=== PATIENT | female | born 1955 | race Caucasian/White ===

== ENCOUNTER 2020-04-10 07:20 | Outpatient (CLI) | payer OTHER, SELFPAY ==
[2020-04-10 07:36] LABS: Basophils Absolute Auto 0.04 K/mm3 (0.00-0.10); Basophils Percent Auto 0.4 % (0.0-1.0); Eosinophils Percent Auto 2.1 % (1.0-6.0); Hematocrit 44.8 % (35.0-49.0); Hemoglobin 14.4 g/dL (12.0-15.0); Immature Granulocyte Absolute 0.03 K/mm3 (0.00-0.00); Immature Granulocyte Percent A 0.3 % (0.0-0.0); Lymphocytes Absolute Auto 1.56 K/mm3 (1.10-4.50); Lymphocytes Percent Auto 16.7 % (18.0-42.0); Mean Corpuscular HGB Conc 32.1 g/dL (32.0-36.0); Mean Corpuscular Hemoglobin 28.9 pg (27.0-31.0); Mean Corpuscular Volume 89.8 fL (78.0-102.0); Mean Platelet Volume 10.4 fl (9.2-11.8); Monocytes Absolute Auto 0.67 K/mm3 (0.10-0.90); Monocytes Percent Auto 7.2 % (2.0-11.0); Neutrophils Absolute Auto 6.8 K/mm3 (1.7-7.2); Neutrophils Percent Auto 73.3 % (50.0-70.0); Platelet Count Result 282 K/mm3 (150-420); Red Blood Count 4.99 M/mm3 (4.20-5.40); White Blood Count 9.3 K/mm3 (4.8-10.8)
[2020-04-10 07:37] LABS: Appearance Urine Clear (Clear); Bilirubin Urine Negative (Negative); Color Urine Yellow (Yellow); Glucose Urine UA Negative (Negative); Ketones Urine Negative (Negative); Leukocyte Esterase Ur Negative LEU/UL (Negative); Nitrate Urine Negative (Negative); Protein Urine Negative (Negative); Urobilinogen Urine 0.2 mg/dL (0.2-1.0); pH Urine 7.5 (5.0-8.0)
[2020-04-10 07:49] LABS: Add Urine Microscopic? YES; Bacteria Urine None seen /hpf; Blood Urine Trace-Intact (Negative); RBC Urine None seen /hpf (0-2); Squamous Epithelial Cell Urine Rare /hpf (Few); WBC Urine None seen /hpf (0-3)
[2020-04-10 09:04] LABS: Alanine Aminotransferase 19 U/L (14-59); Albumin Level 3.8 g/dL (3.4-5.0); Alkaline Phosphatase 69 U/L (46-116); Anion Gap 8 mmol/L (8-16); Aspartate Amino Transferase 15 U/L (15-37); Bilirubin,Total 0.2 mg/dL (0.00-1.00); Blood Urea Nitrogen 35 mg/dL (7-18); Calcium 11.4 mg/dL (8.5-10.1); Carbon Dioxide 29 mmol/L (21-32); Chloride 103 mmol/L (98-108); Cholesterol 219 mg/dL (0-200); Estimated Glomerular Filt Rate 28; Glucose 95 mg/dL (70-99); HDL Direct 53 mg/dL (40-60); LDL Cholesterol Calculated 140 mg/dL (<130); Osmolality Calculated 298 mOsm/kg (285-295); Potassium 4.8 mmol/L (3.5-5.1); Sodium 140 mmol/L (136-145); Total Protein 6.9 g/dL (6.4-8.2); Triglycerides 132 mg/dL (0-150)
[2020-04-15 07:44] LABS: Vitamin D 25 Hydroxy 21 ng/mL (30-100)
== END 2020-04-10 07:21 | disposition home or self-care (01) ==
LOC: CHSLAB 07:24
PROVIDERS: PCP Internal Medicine; Visit Provider Internal Medicine
DX: E55.9 Vitamin D deficiency, unspecified (principal); I10 Essential (primary) hypertension; E78.5 Hyperlipidemia, unspecified
CPT/HCPCS: 36415; 80053; 80061; 81001; 82306; 85025

== ENCOUNTER 2020-04-17 14:54 | Outpatient (CLI) | payer OTHER, SELFPAY ==
[2020-04-18 01:03] LABS: SARS-CoV-2 RNA PCR Negative
== END 2020-04-17 14:55 | disposition home or self-care (01) ==
LOC: CHSLAB 14:57
PROVIDERS: PCP Internal Medicine; Visit Provider Internal Medicine
DX: R68.83 Chills (without fever) (principal); R11.0 Nausea; R19.7 Diarrhea, unspecified; R05 Cough; Z20.828 Contact with and (suspected) exposure to other viral communicable diseases
CPT/HCPCS: 87635; C9803; U0003

== ENCOUNTER 2020-04-20 11:52 | Outpatient (CLI) | payer OTHER, SELFPAY ==
--- NOTE | ~2020-04-20 | XR_ITS ---
EXAMINATION: XR chest 2V DATE: 04/20/2020 12:22 INDICATION: Congestion and chills. TECHNIQUE: Frontal and lateral views of the chest were obtained. COMPARISON: None. FINDINGS: The chest demonstrates clear lungs without pneumonia, pleural effusion, or pneumothorax. Th e heart size is normal. IMPRESSION: 1. No acute cardiopulmonary disease. Reviewed, dictated and finalized at location A. SUPERVISOR
[2020-04-20 12:33] LABS: Basophils Absolute Auto 0.04 K/mm3 (0.00-0.10); Basophils Percent Auto 0.5 % (0.0-1.0); Eosinophils Absolute Auto 0.26 K/mm3 (0.02-0.50); Eosinophils Percent Auto 3.1 % (1.0-6.0); Hematocrit 41.2 % (35.0-49.0); Hemoglobin 13.2 g/dL (12.0-15.0); Immature Granulocyte Absolute 0.02 K/mm3 (0.00-0.00); Immature Granulocyte Percent A 0.2 % (0.0-0.0); Lymphocytes Absolute Auto 1.44 K/mm3 (1.10-4.50); Lymphocytes Percent Auto 17.4 % (18.0-42.0); Mean Corpuscular Hemoglobin 28.8 pg (27.0-31.0); Mean Corpuscular Volume 89.8 fL (78.0-102.0); Mean Platelet Volume 10.9 fl (9.2-11.8); Monocytes Absolute Auto 0.52 K/mm3 (0.10-0.90); Monocytes Percent Auto 6.3 % (2.0-11.0); Neutrophils Percent Auto 72.5 % (50.0-70.0); Platelet Count Result 327 K/mm3 (150-420); Red Blood Count 4.59 M/mm3 (4.20-5.40); Red Cell Distribution Width 14.9 % (11.6-14.4); White Blood Count 8.3 K/mm3 (4.8-10.8)
[2020-04-20 13:08] LABS: Influenza Control Valid (Valid)
[2020-04-20 13:38] LABS: Anion Gap 8 mmol/L (8-16); Blood Urea Nitrogen 25 mg/dL (7-18); Calcium 10.2 mg/dL (8.5-10.1); Carbon Dioxide 28 mmol/L (21-32); Chloride 103 mmol/L (98-108); Estimated Glomerular Filt Rate 34; Glucose 103 mg/dL (70-99); Osmolality Calculated 292 mOsm/kg (285-295); Potassium 4.4 mmol/L (3.5-5.1); Sodium 139 mmol/L (136-145)
== END 2020-04-20 11:53 | disposition home or self-care (01) ==
PROVIDERS: PCP Internal Medicine; Visit Provider Internal Medicine
DX: R09.89 Other specified symptoms and signs involving the circulatory and respiratory systems (principal); R68.83 Chills (without fever)
CPT/HCPCS: 71046; 80048; 85025; 87804

== ENCOUNTER 2020-06-04 11:12 | Outpatient (CLI) | payer OTHER, SELFPAY ==
[2020-06-04 12:28] LABS: SARS-CoV-2 Ag Negative (Negative)
== END 2020-06-04 11:13 | disposition home or self-care (01) ==
LOC: CHSLAB 11:14
PROVIDERS: PCP Internal Medicine; Visit Provider Internal Medicine
DX: Z20.828 Contact with and (suspected) exposure to other viral communicable diseases (principal)
CPT/HCPCS: 87426; C9803

== ENCOUNTER 2020-06-06 09:14 | Emergency (ER) | payer OTHER, SELFPAY ==
--- NOTE | ~2020-06-06 | XR_ITS ---
EXAMINATION: XR chest 2V DATE: 06/06/2020 10:01 INDICATION: Shortness of breath and cough TECHNIQUE: PA and lateral views of the chest were obtained. COMPARISON: Chest radiograph dated 04/20/20 FINDINGS: The lungs remain clear with no focal airspace opacities, pulmonary edema, pleural effusion or pneumot horax. The cardiomediastinal silhouette is normal. Moderate thoracic spondylosis. IMPRESSION: 1. No acute cardiopulmonary disease. Reviewed, dictated and finalized at location A. DE SALES ADVISOR
[2020-06-06 09:28] VITALS: BP 177/84; PULSE 94; RESP 20; TEMP 37.3; O2SAT 95
--- NOTE | 2020-06-06 09:32 | ED.URI ---
HPI - URI/Sore Throat General Chief Complaint: Upper Respiratory Infection Stated Complaint: chest congestion, cough Time Seen by Provider: 06/06/20 09:36 Source: patient Mode of arrival: ambulatory Limitations: no limitations History of Present Illness HPI Narrative: C2 5-year-old woman with history of hypertension and dyslipidemia comes in today complaining of a 4 day history of cough and mild shortness of breath. Patient states that she had fever on the 1st day but has had no fever since then. She states her cough is nonproductive and her abdominal muscles are sore from coughing. She has had nasal congestion but no sore throat, chest pain, vomiting, diarrhea. She denies any sick exposures and has no history of lung or smoking. MD elicited complaint: fever, cough and rhinorrhea Onset (ago): day(s) (3) Consistency: constant Severity: moderate Description of mucous: clear Exacerbating factors: nothing Relieving factors: nothing Associated symptoms: fever, myalgias, rhinorrhea and cough Treatments prior to arrival: cold medicine Related Data Home Medications Medication Instructions Recorded Confirmed amlodipine 10 mg PO DAILY 06/06/20 06/06/20 atorvastatin 10 mg PO DAILY 06/06/20 06/06/20 carvedilol 25 mg PO BID 06/06/20 06/06/20 losartan 100 mg PO DAILY 06/06/20 06/06/20 Allergies Allergy/AdvReac Type Severity Reaction Status Date / Time No Known Allergies Allergy Verified 06/06/20 09:37 Review of Systems Constitutional: Constitutional: Denies chills, Reports fatigue, Reports fever(s) and Denies weakness Eyes: Eyes: Denies change in vision and Denies photophobia ENT: Denies dysphagia, Denies nasal congestion and Denies sore throat Cardiovascular: Cardiovascular: Denies chest pain and Denies radiating jaw, neck or arm pain Respiratory: Respiratory: Reports chest congestion, Reports cough, Reports dyspnea and Reports wheezing Gastrointestinal: Gastrointestinal: Reports abdominal pain, Denies diarrhea, Denies nausea and Denies vomiting Genitourinary: Genitourinary: Denies hematuria, Denies nocturia and Denies dysuria Musculoskeletal: Musculoskeletal: Denies arthralgias and Denies joint swelling Integumentary/Breasts: Skin/Breast: Denies pruritus, Denies erythema and Denies rash Neurologic: Denies vertigo, Denies dizziness and Denies syncope Hematologic/Lymphatic: Hematologic/Lymphatic: Denies easy bleeding and Denies easy bruising Allergic/Immunologic: Allergic/Immunologic: Denies lip swelling, Denies throat swelling and Denies tongue swelling PMFSH Past Medical History Medical History Dyslipidemia Hypertension Social History Social History Smoking status: Never smoker Substance use: never Living arrangements: with family Exam Const: General: healthy appearing, no acute distress and alert Orientation/consciousness: patient oriented x3 Limitations: no limitations HENMT: Head: normal to inspection Ears: external ears normal, TM's normal bilaterally and EAC's normal General nose exam: Normal nares present Face and sinus: normal facial exam Mouth: Yes moist mucous membranes Throat: posterior oropharynx normal Eyes: Conjunctivae: conjunctivae normal Pupils: Equal, round and reactive pupils present EOM: EOMs intact bilaterally Resp: Effort & Inspection: normal respiratory effort and not labored Auscultation: no rales, no rhonchi and wheezes inspiratory wheezes and throughout Cardio: Rate: regular rate Rhythm: regular rhythm Skin: General skin exam: normal color, no jaundice and no pallor Rashes: no rashes Neuro: General: patient oriented x3, moves all extremities, no focal motor deficits and CN's II-XI intact bilaterally Speech: normal speech Gait exam (Neuro): Normal gait present Extrem: General: normal to inspection and no clubbing, cyanosis or edema Psych: Appear
[2020-06-06] MEDS: ALBUTEROL SULFATE (*SP) INHALER 4 PUFF INHALATION (10:10)
[2020-06-06 10:18] VITALS: BP 140/89; PULSE 74; RESP 18; O2SAT 98
== END 2020-06-06 10:27 | disposition home or self-care (01) ==
PROVIDERS: Emergency Provider Emergency Medicine; PCP Internal Medicine
DX: J20.9 Acute bronchitis, unspecified (principal)
CPT/HCPCS: 71046; 99283; A9270

== ENCOUNTER 2020-12-17 07:21 | Outpatient (CLI) | payer OTHER, SELFPAY ==
[2020-12-17 07:40] LABS: Basophils Absolute Auto 0.05 K/mm3 (0.00-0.10); Basophils Percent Auto 0.9 % (0.0-1.0); Eosinophils Absolute Auto 0.26 K/mm3 (0.02-0.50); Eosinophils Percent Auto 4.5 % (1.0-6.0); Hematocrit 42.6 % (35.0-49.0); Immature Granulocyte Absolute 0.01 K/mm3 (0.00-0.00); Immature Granulocyte Percent A 0.2 % (0.0-0.0); Lymphocytes Absolute Auto 1.45 K/mm3 (1.10-4.50); Lymphocytes Percent Auto 24.8 % (18.0-42.0); Mean Corpuscular HGB Conc 32.9 g/dL (32.0-36.0); Mean Corpuscular Hemoglobin 28.6 pg (27.0-31.0); Mean Corpuscular Volume 87.1 fL (78.0-102.0); Mean Platelet Volume 10.5 fl (9.2-11.8); Monocytes Absolute Auto 0.46 K/mm3 (0.10-0.90); Monocytes Percent Auto 7.9 % (2.0-11.0); Neutrophils Absolute Auto 3.6 K/mm3 (1.7-7.2); Neutrophils Percent Auto 61.7 % (50.0-70.0); Platelet Count Result 261 K/mm3 (150-420); Red Blood Count 4.89 M/mm3 (4.20-5.40); Red Cell Distribution Width 14.4 % (11.6-14.4); White Blood Count 5.8 K/mm3 (4.8-10.8)
[2020-12-17 07:45] LABS: Appearance Urine Clear (Clear); Bilirubin Urine Negative (Negative); Color Urine Light Yellow (Yellow); Glucose Urine UA Negative (Negative); Ketones Urine Negative (Negative); Leukocyte Esterase Ur Trace LEU/UL (Negative); Nitrate Urine Negative (Negative); Protein Urine Negative (Negative); Specific Grav Ur 1.015 (1.010-1.020); Urobilinogen Urine 0.2 mg/dL (0.2-1.0); pH Urine 6.5 (5.0-8.0)
[2020-12-17 07:50] LABS: Add Urine Microscopic? YES; Bacteria Urine Trace /hpf; Blood Urine Trace-lysed (Negative); RBC Urine 0-2 /hpf (0-2); Squamous Epithelial Cell Urine Few /hpf (Few); WBC Urine 0-3 /hpf (0-3)
[2020-12-17 09:29] LABS: Alanine Aminotransferase 17 U/L (14-59); Albumin Level 3.8 g/dL (3.4-5.0); Alkaline Phosphatase 62 U/L (46-116); Anion Gap 10 mmol/L (8-16); Aspartate Amino Transferase 12 U/L (15-37); Bilirubin,Total 0.4 mg/dL (0.00-1.00); Blood Urea Nitrogen 31 mg/dL (7-18); Calcium 10.3 mg/dL (8.5-10.1); Carbon Dioxide 28 mmol/L (21-32); Chloride 104 mmol/L (98-108); Cholesterol 226 mg/dL (0-200); Creatine Kinase 100 U/L (26-192); Estimated Glomerular Filt Rate 39; Free T4 Free Thyroxine 0.93 ng/dL (0.76-1.46); Glucose 95 mg/dL (70-99); HDL Direct 65 mg/dL (40-60); LDL Cholesterol Calculated 145 mg/dL (<130); Osmolality Calculated 300 mOsm/kg (285-295); Potassium 4.6 mmol/L (3.5-5.1); Sodium 142 mmol/L (136-145); Thyroid Stimulating Hormone 1.88 uIU/mL (0.36-3.74); Total Protein 6.9 g/dL (6.4-8.2); Triglycerides 78 mg/dL (0-150)
[2020-12-21 01:23] LABS: Vitamin D 25 Hydroxy 21 ng/mL (30-100)
== END 2020-12-17 07:22 | disposition home or self-care (01) ==
LOC: CHSLAB 07:23
PROVIDERS: PCP Internal Medicine; Visit Provider Internal Medicine
DX: E78.5 Hyperlipidemia, unspecified (principal); I10 Essential (primary) hypertension; E55.9 Vitamin D deficiency, unspecified
CPT/HCPCS: 36415; 80053; 80061; 81001; 82306; 82550; 84439; 84443; 85025

== ENCOUNTER 2021-08-10 07:07 | Outpatient (CLI) | payer BC, SELFPAY ==
[2021-08-10 07:27] LABS: Basophils Absolute Auto 0.06 K/mm3 (0.00-0.10); Eosinophils Absolute Auto 0.37 K/mm3 (0.02-0.50); Eosinophils Percent Auto 5.9 % (1.0-6.0); Hematocrit 38.8 % (35.0-49.0); Hemoglobin 12.6 g/dL (12.0-15.0); Immature Granulocyte Absolute 0.01 K/mm3 (0.00-0.00); Immature Granulocyte Percent A 0.2 % (0.0-0.0); Lymphocytes Absolute Auto 1.43 K/mm3 (1.10-4.50); Lymphocytes Percent Auto 22.9 % (18.0-42.0); Mean Corpuscular HGB Conc 32.5 g/dL (32.0-36.0); Mean Corpuscular Volume 89.4 fL (78.0-102.0); Mean Platelet Volume 10.4 fl (9.2-11.8); Monocytes Absolute Auto 0.58 K/mm3 (0.10-0.90); Monocytes Percent Auto 9.3 % (2.0-11.0); Neutrophils Absolute Auto 3.8 K/mm3 (1.7-7.2); Neutrophils Percent Auto 60.7 % (50.0-70.0); Platelet Count Result 238 K/mm3 (150-420); Red Blood Count 4.34 M/mm3 (4.20-5.40); Red Cell Distribution Width 14.4 % (11.6-14.4); White Blood Count 6.2 K/mm3 (4.8-10.8)
[2021-08-10 07:32] LABS: Add Urine Microscopic? YES; Appearance Urine Sl Cloudy (Clear); Bilirubin Urine Negative (Negative); Blood Urine Negative (Negative); Color Urine Light Yellow (Yellow); Glucose Urine UA Negative (Negative); Ketones Urine Negative (Negative); Leukocyte Esterase Ur Trace (Negative); Nitrate Urine Negative (Negative); Protein Urine Negative (Negative); Urobilinogen Urine 0.2 mg/dL (0.2-1.0)
[2021-08-10 07:40] LABS: Bacteria Urine 2+ /hpf; RBC Urine None seen /hpf (0-2); Squamous Epithelial Cell Urine Occasional /hpf (Few); WBC Urine 0-3 /hpf (0-3)
[2021-08-10 07:57] LABS: Alanine Aminotransferase 26 U/L (14-59); Albumin Level 3.7 g/dL (3.4-5.0); Alkaline Phosphatase 52 U/L (46-116); Anion Gap 9 mmol/L (8-16); Aspartate Amino Transferase 27 U/L (15-37); Bilirubin,Total 0.4 mg/dL (0.00-1.00); Blood Urea Nitrogen 31 mg/dL (7-18); Calcium 10.5 mg/dL (8.5-10.1); Carbon Dioxide 29 mmol/L (21-32); Chloride 106 mmol/L (98-108); Cholesterol 172 mg/dL (0-200); Creatine Kinase 125 U/L (26-192); Estimated Glomerular Filt Rate 32; Glucose 105 mg/dL (70-99); HDL Direct 69 mg/dL (40-60); LDL Cholesterol Calculated 87 mg/dL (<130); Osmolality Calculated 304 mOsm/kg (285-295); Potassium 4.4 mmol/L (3.5-5.1); Sodium 144 mmol/L (136-145); Total Protein 6.5 g/dL (6.4-8.2); Triglycerides 82 mg/dL (0-150)
[2021-08-12 15:47] LABS: Vitamin D 25 Hydroxy 30 ng/mL (30-100)
== END 2021-08-10 07:08 | disposition home or self-care (01) ==
LOC: CHSLAB 07:10
PROVIDERS: PCP Internal Medicine; Visit Provider Internal Medicine
DX: E78.2 Mixed hyperlipidemia (principal); I10 Essential (primary) hypertension; E53.9 Vitamin B deficiency, unspecified
CPT/HCPCS: 36415; 80053; 80061; 81001; 82306; 82550; 85025

== ENCOUNTER 2021-09-24 16:11 | Outpatient (CLI) | payer BC, SELFPAY ==
[2021-09-24 16:54] LABS: Anion Gap 9 mmol/L (8-16); Blood Urea Nitrogen 34 mg/dL (7-18); Calcium 11.2 mg/dL (8.5-10.1); Carbon Dioxide 28 mmol/L (21-32); Chloride 101 mmol/L (98-108); Estimated Glomerular Filt Rate 31; Glucose 93 mg/dL (70-99); Osmolality Calculated 293 mOsm/kg (285-295); Potassium 4.3 mmol/L (3.5-5.1); Sodium 138 mmol/L (136-145)
== END 2021-09-24 16:12 | disposition home or self-care (01) ==
LOC: CHSLAB 16:13
PROVIDERS: PCP Internal Medicine; Visit Provider Internal Medicine
DX: I12.9 Hypertensive chronic kidney disease with stage 1 through stage 4 chronic kidney disease, or unspecified chronic kidney disease (principal); N18.30 Chronic kidney disease, stage 3 unspecified
CPT/HCPCS: 36415; 80048

== ENCOUNTER 2021-10-29 16:22 | Outpatient (CLI) | payer BC, SELFPAY ==
[2021-10-29 17:11] LABS: Anion Gap 7 mmol/L (8-16); Blood Urea Nitrogen 33 mg/dL (7-18); Calcium 11.3 mg/dL (8.5-10.1); Carbon Dioxide 29 mmol/L (21-32); Chloride 101 mmol/L (98-108); Estimated Glomerular Filt Rate 37; Glucose 98 mg/dL (70-99); Osmolality Calculated 291 mOsm/kg (285-295); Potassium 3.8 mmol/L (3.5-5.1); Sodium 137 mmol/L (136-145)
== END 2021-10-29 16:23 | disposition home or self-care (01) ==
LOC: CHSLAB 16:24
PROVIDERS: PCP Internal Medicine; Visit Provider Internal Medicine
DX: I10 Essential (primary) hypertension (principal)
CPT/HCPCS: 36415; 80048

== ENCOUNTER 2022-01-26 11:15 | Outpatient (CLI) | payer BC, SELFPAY ==
[2022-01-26 11:29] LABS: Hematocrit 39.7 % (35.0-49.0); Hemoglobin 13.4 g/dL (12.0-15.0); Mean Corpuscular HGB Conc 33.8 g/dL (32.0-36.0); Mean Corpuscular Hemoglobin 29.6 pg (27.0-31.0); Mean Corpuscular Volume 87.6 fL (78.0-102.0); Mean Platelet Volume 10.4 fl (9.2-11.8); Platelet Count Result 182 K/mm3 (150-420); Red Blood Count 4.53 M/mm3 (4.20-5.40); Red Cell Distribution Width 14.1 % (11.6-14.4); White Blood Count 4.7 K/mm3 (4.8-10.8)
[2022-01-26 11:32] LABS: Add Urine Microscopic? YES; Appearance Urine Clear (Clear); Bilirubin Urine Negative (Negative); Blood Urine 2+ (Negative); Color Urine Light Yellow (Yellow); Glucose Urine UA Negative (Negative); Ketones Urine Negative (Negative); Leukocyte Esterase Ur Negative LEU/UL (Negative); Nitrate Urine Negative (Negative); Protein Urine Trace (Negative); Urobilinogen Urine 0.2 mg/dL (0.2-1.0)
[2022-01-26 11:37] LABS: Bacteria Urine Trace /hpf; Squamous Epithelial Cell Urine Occasional /hpf (Few); WBC Urine None seen /hpf (0-3)
[2022-01-26 11:45] LABS: Alanine Aminotransferase 25 U/L (14-59); Albumin Level 3.5 g/dL (3.4-5.0); Alkaline Phosphatase 61 U/L (46-116); Anion Gap 6 mmol/L (8-16); Aspartate Amino Transferase 20 U/L (15-37); Bilirubin,Total 0.2 mg/dL (0.00-1.00); Blood Urea Nitrogen 21 mg/dL (7-18); Calcium 9.2 mg/dL (8.5-10.1); Carbon Dioxide 27 mmol/L (21-32); Chloride 103 mmol/L (98-108); Estimated Glomerular Filt Rate 37; Glucose 102 mg/dL (70-99); Osmolality Calculated 285 mOsm/kg (285-295); Potassium 3.8 mmol/L (3.5-5.1); Sodium 136 mmol/L (136-145); Total Protein 6.9 g/dL (6.4-8.2)
[2022-01-26 11:47] LABS: Band Neutrophils Percent 2 % (0-6); Basophils Percent Manual 0 % (0-1); Eosinophils Percent Manual 0 % (1-6); Lymphocytes Absolute Manual 1.45 K/mm3 (1.1-4.5); Lymphocytes Percent Manual 31 % (18-44); Monocytes Absolute Manual 0.94 K/mm3 (0.1-0.90); Monocytes Percent Manual 20 % (3-9); Neutrophils Percent Manual 47 % (46-73); Platelet Estimate Adequate (Adequate); Total Cells Counted 100
[2022-01-26 12:04] LABS: Influenza A QL RT-PCR Negative (Negative); Influenza B QL RT-PCR Negative (Negative); SARS-CoV-2 RNA PCR Positive (Negative)
== END 2022-01-26 11:16 | disposition home or self-care (01) ==
LOC: CHSLAB 11:18
PROVIDERS: PCP Internal Medicine; Visit Provider Internal Medicine
DX: U07.1 COVID-19 (principal); R51.9 Headache, unspecified; R11.0 Nausea; R50.9 Fever, unspecified
CPT/HCPCS: 36415; 80053; 81001; 85025; 87502; C9803; U0003; U0005

== ENCOUNTER 2022-03-17 07:21 | Outpatient (CLI) | payer BC, SELFPAY ==
[2022-03-17 07:43] LABS: Basophils Absolute Auto 0.06 K/mm3 (0.00-0.10); Basophils Percent Auto 0.9 % (0.0-1.0); Eosinophils Absolute Auto 0.49 K/mm3 (0.02-0.50); Hematocrit 39.8 % (35.0-49.0); Hemoglobin 12.9 g/dL (12.0-15.0); Immature Granulocyte Absolute 0.01 K/mm3 (0.00-0.00); Immature Granulocyte Percent A 0.1 % (0.0-0.0); Lymphocytes Absolute Auto 1.45 K/mm3 (1.10-4.50); Lymphocytes Percent Auto 20.8 % (18.0-42.0); Mean Corpuscular HGB Conc 32.4 g/dL (32.0-36.0); Mean Corpuscular Hemoglobin 28.7 pg (27.0-31.0); Mean Corpuscular Volume 88.6 fL (78.0-102.0); Monocytes Absolute Auto 0.54 K/mm3 (0.10-0.90); Monocytes Percent Auto 7.7 % (2.0-11.0); Neutrophils Absolute Auto 4.4 K/mm3 (1.7-7.2); Neutrophils Percent Auto 63.5 % (50.0-70.0); Platelet Count Result 243 K/mm3 (150-420); Red Blood Count 4.49 M/mm3 (4.20-5.40); Red Cell Distribution Width 14.6 % (11.6-14.4)
[2022-03-17 07:45] LABS: Appearance Urine Slightly Cloudy (Clear); Bilirubin Urine Negative (Negative); Blood Urine Negative (Negative); Glucose Urine UA Negative (Negative); Ketones Urine Negative (Negative); Leukocyte Esterase Ur Negative (Negative); Nitrate Urine Negative (Negative); Protein Urine Negative (Negative); Specific Grav Ur 1.015 (1.010-1.020); Urobilinogen Urine 0.2 mg/dL (0.2-1.0); pH Urine 7.5 (5.0-8.0)
[2022-03-17 07:52] LABS: Add Urine Microscopic? NO; Color Urine Light Yellow (Yellow)
[2022-03-17 07:53] LABS: Hemoglobin A1C 5.9 % (<5.7)
[2022-03-17 08:26] LABS: Alanine Aminotransferase 25 U/L (14-59); Albumin Level 3.8 g/dL (3.4-5.0); Alkaline Phosphatase 63 U/L (46-116); Anion Gap 7 mmol/L (8-16); Aspartate Amino Transferase 16 U/L (15-37); Bilirubin,Total 0.4 mg/dL (0.00-1.00); Blood Urea Nitrogen 33 mg/dL (7-18); Calcium 10.2 mg/dL (8.5-10.1); Carbon Dioxide 28 mmol/L (21-32); Chloride 104 mmol/L (98-108); Cholesterol 171 mg/dL (0-200); Creatine Kinase 124 U/L (26-192); Estimated Glomerular Filt Rate 32; Glucose 105 mg/dL (70-99); HDL Direct 68 mg/dL (40-60); LDL Cholesterol Calculated 89 mg/dL (<130); Osmolality Calculated 295 mOsm/kg (285-295); Potassium 4.5 mmol/L (3.5-5.1); Sodium 139 mmol/L (136-145); Total Protein 6.9 g/dL (6.4-8.2); Triglycerides 68 mg/dL (0-150)
[2022-03-20 14:22] LABS: Parathyroid Intact 15 pg/mL (14-64)
[2022-03-24 20:22] LABS: Vitamin D 25 Hydroxy 38 ng/mL (30-100)
== END 2022-03-17 07:22 | disposition home or self-care (01) ==
LOC: CHSLAB 07:23
PROVIDERS: PCP Internal Medicine; Visit Provider Internal Medicine
DX: I12.9 Hypertensive chronic kidney disease with stage 1 through stage 4 chronic kidney disease, or unspecified chronic kidney disease (principal); N18.30 Chronic kidney disease, stage 3 unspecified; E78.2 Mixed hyperlipidemia; R73.01 Impaired fasting glucose
CPT/HCPCS: 36415; 80053; 80061; 81003; 82306; 82550; 83036; 83970; 85025

== ENCOUNTER 2022-05-25 07:41 | Outpatient (CLI) | payer BC, SELFPAY ==
[2022-05-25 08:18] LABS: Anion Gap 7 mmol/L (8-16); Blood Urea Nitrogen 28 mg/dL (7-18); Calcium 9.7 mg/dL (8.5-10.1); Carbon Dioxide 29 mmol/L (21-32); Chloride 105 mmol/L (98-108); Estimated Glomerular Filt Rate 37; Glucose 112 mg/dL (70-99); Osmolality Calculated 298 mOsm/kg (285-295); Potassium 4.4 mmol/L (3.5-5.1); Sodium 141 mmol/L (136-145)
== END 2022-05-25 07:42 | disposition home or self-care (01) ==
LOC: CHSLAB 07:43
PROVIDERS: PCP Internal Medicine; Visit Provider Internal Medicine
DX: I10 Essential (primary) hypertension (principal)
CPT/HCPCS: 36415; 80048

== ENCOUNTER 2023-01-12 07:09 | Outpatient (CLI) | payer BC, SELFPAY ==
[2023-01-12 07:25] LABS: Basophils Absolute Auto 0.04 K/mm3 (0.00-0.10); Basophils Percent Auto 0.6 % (0.0-1.0); Eosinophils Absolute Auto 0.28 K/mm3 (0.02-0.50); Eosinophils Percent Auto 4.4 % (1.0-6.0); Hematocrit 37.7 % (35.0-42.0); Hemoglobin 12.8 g/dL (11.7-13.8); Immature Granulocyte Absolute 0.02 K/mm3 (0.00-0.00); Immature Granulocyte Percent A 0.3 % (0.0-0.0); Lymphocytes Absolute Auto 1.34 K/mm3 (1.10-4.50); Lymphocytes Percent Auto 21.1 % (18.0-42.0); Mean Corpuscular Hemoglobin 30.1 pg (27.0-31.0); Mean Corpuscular Volume 88.7 fL (78.0-102.0); Mean Platelet Volume 10.4 fl (9.2-11.8); Monocytes Absolute Auto 0.59 K/mm3 (0.10-0.90); Monocytes Percent Auto 9.3 % (2.0-11.0); Neutrophils Absolute Auto 4.1 K/mm3 (1.7-7.2); Neutrophils Percent Auto 64.3 % (50.0-70.0); Platelet Count Result 245 K/mm3 (150-420); Red Blood Count 4.25 M/mm3 (4.20-5.40); Red Cell Distribution Width 13.9 % (11.6-14.4); White Blood Count 6.3 K/mm3 (4.8-10.8)
[2023-01-12 07:26] LABS: Appearance Urine Slightly Cloudy (Clear); Bilirubin Urine Negative (Negative); Blood Urine Negative (Negative); Color Urine Light Yellow (Yellow); Glucose Urine UA Negative (Negative); Ketones Urine Negative (Negative); Leukocyte Esterase Ur Negative (Negative); Nitrate Urine Negative (Negative); Protein Urine Negative (Negative); Urobilinogen Urine 0.2 mg/dL (0.2-1.0)
[2023-01-12 07:28] LABS: Add Urine Microscopic? NO
[2023-01-12 07:32] LABS: Hemoglobin A1C 5.5 % (<5.7)
[2023-01-12 08:14] LABS: Alanine Aminotransferase 19 U/L (14-59); Albumin Level 3.8 g/dL (3.4-5.0); Alkaline Phosphatase 61 U/L (46-116); Anion Gap 10 mmol/L (8-16); Aspartate Amino Transferase 16 U/L (15-37); Bilirubin,Total 0.4 mg/dL (0.00-1.00); Blood Urea Nitrogen 44 mg/dL (7-18); Carbon Dioxide 28 mmol/L (21-32); Chloride 104 mmol/L (98-108); Cholesterol 164 mg/dL (0-200); Creatine Kinase 170 U/L (26-192); Estimated Glomerular Filt Rate 28; Glucose 111 mg/dL (70-99); HDL Direct 66 mg/dL (40-60); LDL Cholesterol Calculated 88 mg/dL (<130); Osmolality Calculated 306 mOsm/kg (285-295); Potassium 4.4 mmol/L (3.5-5.1); Sodium 142 mmol/L (136-145); Total Protein 6.7 g/dL (6.4-8.2); Triglycerides 50 mg/dL (0-150)
[2023-01-17 19:25] LABS: Parathyroid Intact 7 pg/mL (14-64)
== END 2023-01-12 07:10 | disposition home or self-care (01) ==
LOC: CHSLAB 07:11
PROVIDERS: PCP Internal Medicine; Visit Provider Internal Medicine
DX: I10 Essential (primary) hypertension (principal); E78.2 Mixed hyperlipidemia; E83.52 Hypercalcemia; R73.01 Impaired fasting glucose
CPT/HCPCS: 36415; 80053; 80061; 81003; 82550; 83036; 83970; 85025

== ENCOUNTER 2023-02-24 07:29 | Outpatient (CLI) | payer BC, SELFPAY ==
[2023-02-24 09:04] LABS: Alanine Aminotransferase 20 U/L (14-59); Albumin Level 3.4 g/dL (3.4-5.0); Alkaline Phosphatase 58 U/L (46-116); Anion Gap 8 mmol/L (8-16); Aspartate Amino Transferase 10 U/L (15-37); Bilirubin,Total 0.2 mg/dL (0.00-1.00); Blood Urea Nitrogen 26 mg/dL (7-18); Calcium 10.3 mg/dL (8.5-10.1); Carbon Dioxide 28 mmol/L (21-32); Chloride 106 mmol/L (98-108); Estimated Glomerular Filt Rate 34; Glucose 100 mg/dL (70-99); Osmolality Calculated 298 mOsm/kg (285-295); Potassium 4.3 mmol/L (3.5-5.1); Sodium 142 mmol/L (136-145); Total Protein 6.4 g/dL (6.4-8.2)
[2023-02-27 21:14] LABS: Ionized Calcium 5.4 mg/dL (4.7-5.5)
== END 2023-02-24 07:30 | disposition home or self-care (01) ==
LOC: CHSLAB 07:31
PROVIDERS: PCP Internal Medicine; Visit Provider Internal Medicine
DX: N18.4 Chronic kidney disease, stage 4 (severe) (principal)
CPT/HCPCS: 36415; 80053; 82330

== ENCOUNTER 2023-03-01 10:10 | Outpatient (CLI) | payer BC, SELFPAY ==
--- NOTE | ~2023-03-01 | DEXA_ITS ---
Bone Density Report Name: RONNI REINOSO Age: 67 Sex: Female Ethnicity: White Date of : 1955 Indication: postmenopausal; screening for osteoporosis; height loss; Referring Provider: Car Thomas Study: Bone densitometry was performed. Exam Date: March 01, 2023 Accession number: [id number] Bone Density: Region BMD T-score Z-score Classification AP Spine(L1-L4) 1.207 1.5 3.3 Normal Femoral Neck (Left) 0.822 -0.2 1.3 Normal Total Hip (Left) 0.848 -0.8 0.5 Normal Femoral Neck (Right) 0.833 -0.1 1.4 Normal Total Hip (Right) 0.881 -0.5 0.8 Normal Femoral Neck Mean 0.827 -0.2 1.4 Normal Total Hip Mean 0.865 -0.6 0.6 Normal World Health Organization criteria for BMD impression classify patients as: Normal (T-score at or above -1.0), Osteopenia (T-score between -1.0 and -2.5), or Osteoporosis (T-score at or below -2.5). 10-year Fracture Risk: FRAX not reported because: All T-scores for Spine Total, Hip Total, Femoral Neck at or above -1.0 Clinical Information Provided by Patient: Patient maximum height was 67 Menopause Age: 55 No regular weight bearing exercise Drinks caffeinated beverages Onset of menses at age 13 Number of children 2 Impression: The patient has normal bone mass. Discussion: BONE DENSITY IS ABOVE THE MINIMUM DESIRABLE LEVEL AT ALL SKELETAL SITES TESTED. This patient?s bone mineral density is above the minimum desirable level (T-score -1.0 or better) at all sites measured. The patient should follow a healthful lifestyle (good nutrition with adequate calcium and vitamin D, and appropriate weight-bearing exercise). Follow-Up: Consider repeating this study in 5 years or sooner if there is some new clinical indication. Reported by: Dr. Ashwin Devries on 03/01/2023 10:53:00 AM. Reviewed, dictated and finalized at location A.
--- NOTE | ~2023-03-01 | MM_ITS ---
EXAMINATION: MM screening [facility]ui BI w gregorio HISTORY: Screening mammogram TECHNIQUE: Craniocaudal and mediolateral oblique 3-D tomosynthesis images were obtained and synthetic 2-D images were generated. CAD analysis was submitted and interpreted. COMPARISON: 02/22/2019, 08/02/2017 bilateral screening mammogram examinations BREAST PARENCHYMAL COMPOSITION: There are scattered areas of fibroglandular density. FINDINGS: There is no evidence of suspicious mass, calcification, or architectural distortion to sugg est malignancy in either breast. There has been no suspicious interval change. IMPRESSION: 1. No mammographic evidence of malignancy. 2. Recommend routine screening mammography in one year. BI-RADS Category 1: Negative Reviewed, dictated and finalized at location A.
== END 2023-03-01 10:11 | disposition home or self-care (01) ==
LOC: CHSIMG 10:11
PROVIDERS: PCP Internal Medicine; Visit Provider Internal Medicine
DX: Z12.31 Encounter for screening mammogram for malignant neoplasm of breast (principal); M81.0 Age-related osteoporosis without current pathological fracture
CPT/HCPCS: 77063; 77067; 77080

== ENCOUNTER 2024-04-15 09:56 | Outpatient (CLI) | payer MEDICARE, SELFPAY ==
[2024-04-15 10:15] LABS: Basophils Absolute Auto 0.07 K/mm3 (0.00-0.10); Eosinophils Absolute Auto 0.32 K/mm3 (0.02-0.50); Eosinophils Percent Auto 4.6 % (1.0-6.0); Hematocrit 39.5 % (35.0-42.0); Hemoglobin 13.4 g/dL (11.7-13.8); Immature Granulocyte Absolute 0.02 K/mm3 (0.00-0.00); Immature Granulocyte Percent A 0.3 % (0.0-0.0); Lymphocytes Percent Auto 22.9 % (18.0-42.0); Mean Corpuscular HGB Conc 33.9 g/dL (32-36); Mean Corpuscular Hemoglobin 29.6 pg (27.0-31.0); Mean Corpuscular Volume 87.4 fL (78.0-102.0); Mean Platelet Volume 10.6 fl (9.2-11.8); Monocytes Percent Auto 7.1 % (2.0-11.0); Neutrophils Absolute Auto 4.49 K/mm3 (1.70-7.20); Neutrophils Percent Auto 64.1 % (50.0-70.0); Platelet Count Result 237 K/mm3 (150-420); Red Blood Count 4.52 M/mm3 (4.20-5.40); Red Cell Distribution Width 13.8 % (11.6-14.4)
[2024-04-15 10:16] LABS: Add Urine Microscopic? NO; Appearance Urine Clear (Clear); Bilirubin Urine Negative (Negative); Blood Urine Negative (Negative); Color Urine Light Yellow (Yellow); Glucose Urine UA Negative (Negative); Ketones Urine Negative (Negative); Leukocyte Esterase Ur Negative (Negative); Nitrate Urine Negative (Negative); Protein Urine Negative (Negative); Urobilinogen Urine 0.2 mg/dL (0.2-1.0)
[2024-04-15 13:51] LABS: Alanine Aminotransferase 23 U/L (14-59); Albumin Level 3.6 g/dL (3.4-5.0); Alkaline Phosphatase 80 U/L (46-116); Anion Gap 11 mmol/L (4-12); Aspartate Amino Transferase 15 U/L (15-37); Bilirubin,Total 0.4 mg/dL (0.00-1.00); Blood Urea Nitrogen 36 mg/dL (7-18); Calcium 10.8 mg/dL (8.5-10.1); Carbon Dioxide 25 mmol/L (21-32); Chloride 106 mmol/L (98-108); Cholesterol 165 mg/dL (0-200); Estimated Glomerular Filt Rate 33; Glucose 104 mg/dL (70-99); HDL Direct 57 mg/dL (40-60); LDL Cholesterol Calculated 86 mg/dL (<130); Osmolality Calculated 302 mOsm/kg (285-295); Potassium 4.9 mmol/L (3.5-5.1); Sodium 142 mmol/L (136-145); Total Protein 6.8 g/dL (6.4-8.2); Triglycerides 108 mg/dL (0-150)
[2024-04-16 14:18] LABS: Parathyroid Intact 14 pg/mL (16-77)
== END 2024-04-15 09:57 | disposition home or self-care (01) ==
LOC: CHSLAB 09:59
PROVIDERS: PCP Internal Medicine; Visit Provider Internal Medicine
DX: I10 Essential (primary) hypertension (principal); I12.9 Hypertensive chronic kidney disease with stage 1 through stage 4 chronic kidney disease, or unspecified chronic kidney disease; E78.2 Mixed hyperlipidemia; E83.52 Hypercalcemia
CPT/HCPCS: 36415; 80053; 80061; 81003; 83970; 85025

== ENCOUNTER 2024-07-29 07:56 | Outpatient (CLI) | payer MEDICARE, SELFPAY ==
--- OUTSIDE RECORDS SUMMARY | 2024-07-29 08:08 | XMS_ITS | Clinical Summary ---
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 Gender Identity Not on file Sexual Orientation Not on file Last Filed Vital Signs Vital Sign Reading Time Taken Comments Blood Pressure 182/92 05/22/2017 4:03 PM MARKETING INFORMATION ANALYST Pulse 80 05/22/2017 4:03 PM MARKETING INFORMATION ANALYST Temperature - - Respiratory Rate - - Oxygen Saturation - - Inhaled Oxygen Concentration - - Weight 81.6 kg (180 lb) 05/22/2017 4:03 PM MARKETING INFORMATION ANALYST Height 167.6 cm (5' 6 ) 05/22/2017 4:03 PM MARKETING INFORMATION ANALYST Body Mass Index 29.05 05/22/2017 4:03 PM MARKETING INFORMATION ANALYST Plan of Treatment Health Maintenance Due Date Last Done Comments Colorectal Cancer Screening Colonoscopy (10 Years) 1955 Hepatitis C 1975 DTaP, Tdap and Td Vaccines ( 1 - Tdap) 1976 Mammogram Screening 1997 Zoster Vaccines (1 of 2) 2007 Dexa Scan (General) 2022 Pneumococcal Vaccine: 65+ Ye ars (1 of 1 - PCV) 2022 COVID-19 Vaccine ( - 2023-2 5 season) 2024 Influenza Adult (#1) 2024 RSV Immunization or 60+ Years (1 - 1-dose 75+ series) 2032 Meningococcal B Vaccine Aged Out No l onger eligible based on patient's age to complete this topic Meningococcal Vaccine Aged Out No cynthia shama eligible based on patient's age to complete this topic RSV Immunizations Under 20 Months Aged Out No longer eligible based on patient's age to complete this topic
--- OUTSIDE RECORDS SUMMARY | 2024-07-29 08:08 | XMS_ITS | Encounter Summary ---
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
[2024-07-29 08:17] LABS: Hematocrit 40.7 % (35.0-42.0); Hemoglobin 13.3 g/dL (11.7-13.8); Mean Corpuscular HGB Conc 32.7 g/dL (32-36); Mean Corpuscular Hemoglobin 28.7 pg (27.0-31.0); Mean Corpuscular Volume 87.9 fL (78.0-102.0); Mean Platelet Volume 10.9 fl (9.2-11.8); Platelet Count Result 258 K/mm3 (150-420); Red Blood Count 4.63 M/mm3 (4.20-5.40); Red Cell Distribution Width 13.5 % (11.6-14.4); White Blood Count 7.4 K/mm3 (4.8-10.8)
[2024-07-29 08:21] LABS: Add Urine Microscopic? YES; Appearance Urine Clear (Clear); Bilirubin Urine Negative (Negative); Blood Urine Trace-intact (Negative); Color Urine Light Yellow (Yellow); Glucose Urine UA Negative (Negative); Ketones Urine Negative (Negative); Leukocyte Esterase Ur Trace (Negative); Nitrate Urine Negative (Negative); Protein Urine Negative (Negative); Urobilinogen Urine 0.2 mg/dL (0.2-1.0)
[2024-07-29 08:28] LABS: Bacteria Urine 1+ /hpf; RBC Urine 0-2 /hpf (0-2); Squamous Epithelial Cell Urine Few /hpf (Few); WBC Urine 0-3 /hpf (0-3)
[2024-07-29 08:44] LABS: Hemoglobin A1C 5.6 % (<5.7)
[2024-07-29 11:06] LABS: Alanine Aminotransferase 19 U/L (14-59); Albumin Level 3.8 g/dL (3.4-5.0); Alkaline Phosphatase 85 U/L (46-116); Anion Gap 11 mmol/L (4-12); Aspartate Amino Transferase 13 U/L (15-37); Bilirubin,Total 0.4 mg/dL (0.00-1.00); Blood Urea Nitrogen 43 mg/dL (7-18); Calcium 11.7 mg/dL (8.5-10.1); Carbon Dioxide 27 mmol/L (21-32); Chloride 103 mmol/L (98-108); Estimated Glomerular Filt Rate 29; Glucose 112 mg/dL (70-99); Osmolality Calculated 303 mOsm/kg (285-295); Potassium 4.2 mmol/L (3.5-5.1); Sodium 141 mmol/L (136-145); Total Protein 7.3 g/dL (6.4-8.2)
[2024-07-30 14:04] LABS: Parathyroid Intact 7 pg/mL (16-77)
[2024-07-31 12:38] LABS: Ionized Calcium 6.3 mg/dL (4.7-5.5)
== END 2024-07-29 07:57 | disposition home or self-care (01) ==
PROVIDERS: PCP Internal Medicine; Visit Provider Internal Medicine
DX: I12.9 Hypertensive chronic kidney disease with stage 1 through stage 4 chronic kidney disease, or unspecified chronic kidney disease (principal); N18.30 Chronic kidney disease, stage 3 unspecified; R73.01 Impaired fasting glucose; E83.52 Hypercalcemia
CPT/HCPCS: 36415; 80053; 81001; 82330; 83036; 83970; 85027

== ENCOUNTER 2024-10-26 07:14 | Outpatient (CLI) | payer MEDICARE, SELFPAY ==
[2024-10-26 08:06] LABS: Alanine Aminotransferase 24 U/L (6-35); Albumin Level 4.3 g/dL (3.5-5.1); Alkaline Phosphatase 58 U/L (38-126); Anion Gap 6 mmol/L (4-12); Aspartate Amino Transferase 32 U/L (14-36); Bilirubin,Total 0.4 mg/dL (0.2-1.3); Blood Urea Nitrogen 45 mg/dL (7-17); Carbon Dioxide 25 mmol/L (22-30); Chloride 107 mmol/L (98-107); Estimated Glomerular Filt Rate 22; Glucose 111 mg/dL (65-110); Osmolality Calculated 298 mOsm/kg (285-295); Potassium 4.4 mmol/L (3.4-5.0); Sodium 138 mmol/L (137-145); Total Protein 6.9 g/dL (6.3-8.2)
[2024-10-26 08:11] LABS: Calcium 12.5 mg/dL (8.4-10.2)
[2024-10-29 11:14] LABS: Ionized Calcium 6.8 mg/dL (4.7-5.5)
== END 2024-10-26 07:15 | disposition home or self-care (01) ==
LOC: CHSLAB 07:16
PROVIDERS: PCP Internal Medicine; Visit Provider Internal Medicine
DX: E83.52 Hypercalcemia (principal)
CPT/HCPCS: 36415; 80053; 82330

== ENCOUNTER 2024-11-01 12:17 | Outpatient (CLI) | payer MEDICARE, SELFPAY ==
--- NOTE | ~2024-11-01 | MM_ITS ---
EXAMINATION: MM screening [facility] BI w gregorio HISTORY: Screening TECHNIQUE: Craniocaudal and mediolateral oblique 3-D tomosynthesis images were obtained and synthetic 2-D images were generated. CAD analysis was submitted and interpreted. COMPARISON: Comparison to multiple prior studies sequentially, with oldest reviewed study dated 08/02. BREAST PARENCHYMAL COMPOSITION: Not dense: There are scattered areas of fibroglandular density. FINDINGS: There is no evidence of suspicious mass, calcification, or architectural distortion to sugg est malignancy in either breast. There has been no suspicious interval change. IMPRESSION: 1. No mammographic evidence of malignancy. 2. Recommend routine screening mammography in one year. BI-RADS Category 1: Negative Reviewed, dictated and finalized at location A.
== END 2024-11-01 12:18 | disposition home or self-care (01) ==
PROVIDERS: PCP Internal Medicine; Visit Provider Internal Medicine
DX: Z12.31 Encounter for screening mammogram for malignant neoplasm of breast (principal)
CPT/HCPCS: 77063; 77067

== ENCOUNTER 2024-11-05 07:01 | Outpatient (CLI) | payer MEDICARE, SELFPAY ==
[2024-11-05 08:29] LABS: Alanine Aminotransferase 18 U/L (6-35); Albumin Level 3.9 g/dL (3.5-5.1); Alkaline Phosphatase 54 U/L (38-126); Anion Gap 5 mmol/L (4-12); Aspartate Amino Transferase 23 U/L (14-36); Bilirubin,Total 0.4 mg/dL (0.2-1.3); Blood Urea Nitrogen 30 mg/dL (7-17); Calcium 8.7 mg/dL (8.4-10.2); Carbon Dioxide 20 mmol/L (22-30); Chloride 116 mmol/L (98-107); Estimated Glomerular Filt Rate 29; Glucose 98 mg/dL (65-110); Osmolality Calculated 298 mOsm/kg (285-295); Potassium 4.9 mmol/L (3.4-5.0); Sodium 141 mmol/L (137-145); Total Protein 6.5 g/dL (6.3-8.2)
== END 2024-11-05 07:02 | disposition home or self-care (01) ==
LOC: CHSLAB 07:03
PROVIDERS: PCP Internal Medicine; Visit Provider Internal Medicine
DX: E83.52 Hypercalcemia (principal)
CPT/HCPCS: 36415; 80053; 82330

== ENCOUNTER 2024-12-03 07:41 | Outpatient (CLI) | payer MEDICARE, SELFPAY ==
--- OUTSIDE RECORDS SUMMARY | 2024-12-03 07:46 | XMS_ITS | Encounter Summary ---
Author Organization [facility] Address [facility] [place] [address] Care Team Providers Care Personal Computer Network Analyst Name Role Phone None, Provider Primary Care Provider Car Alonso MD Primary Care Provider [phone] Encounter Details Date Type Department Care Team (Late st Contact Info) Description 11/10/2018 Abstract [facility]FL CONVERSION [address] [address] , Generic Conversion, Social History Tobacco Use Types Packs/Day Years Used Date Smoking Tobacco: Never Assessed Comments Unknown Sex and Gender Information Value Date Recorded Sex Assigned at Female 10/30/2024 2:44 AM CDT Legal 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
--- OUTSIDE RECORDS SUMMARY | 2024-12-03 07:46 | XMS_ITS | Clinical Summary ---
Author Organization [facility] Address [address] [place] [address] Care Team Providers Care Clinical Education Consultant Name Role Phone Car Thomas MD Primary Care Provider [phone] Allergies No known active allergies Medications amLODIPine (NORVASC) 10 MG tablet Take 1 tablet (10 mg total) by mouth daily. Active atorvastatin (LIPITOR) 10 MG tablet Take 1 tablet (10 mg total) by mouth daily. 10/01/2024 Active bisoprolol (ZEBETA) 10 MG tablet Take 1 tablet (10 mg total) by mouth daily. 10/02/2024 Active losartan (COZAAR) 100 MG tablet Take 1 tablet (100 mg total) by mouth daily. Active Active Problems Problem Noted Date Diagnosed Date Hypercalcemia 10/29/2024 Encounters Date Type Department Care Team Description 10/29/2024 8:54 PM CDT - 10/30/2024 1:35 PM CDT Hospital Encounter [facility] [address] [place] [address] Sidra Palmer MD Naveed, MD Nichol Becerra Ankit R, MD Abnormal Lab Results Discharge Disposition: Left Against Medical Advice 10/29/2024 Travel from Last 3 Months Social History Tobacco Use Types Packs/Day Years Used Date Smoking Tobacco: Never Smokeless Tobacco: Never Tobacco Cessation:Counseling Given: Not Answered [id number] Health Literacy Answer Date Recor ded How often do you need to hav e someone help you when you read instructions, pamphlets, or other written material from your doctor or pharmacy? Sometimes 10/30/2024 [facility] Util[facility] Answer Date Recorded In the past 12 months has e Fanear, Stupil, or HomeSav threatened to shut off services in your home? No 10/30/2024 Humiliation, Afraid, Rape, and Kick questionnair e Answer Date Recorded Within the last year, have y ou been afraid of your partner or ex-partner? No 10/30/2024 Within the last year, have y ou been humiliated or emotionally abused in other ways by your partner or ex-partner? No Within the last year, have y ou been kicked, hit, slapped, or otherwise physically hurt by your partner or ex-partner? No 10/30/2024 Within the last year, have y ou been raped or forced to have any kind of sexual activity by your partner or ex-partner? No 10/30/2024 Social Connection and Isolation Panel [NHANES] A nswer Date Recorded In a typical week, how many times do you talk on the phone with family, friends, or neighbors? Twice a week 10/30/2024 How often do you get together with friends or re latives? Once a week 10/30/2024 How often do you attend yazdanism or presybeterian serv ices? Never 10/30/2024 Do you belong to any clubs o r organizations such as yazdanism groups, unions, fraternal or athletic groups, or school groups? No 10/30/2024 How often do you attend meet ings of the clubs or organizations you belong to? Never 10/30/2024 Are you , , di vorced, , never , or living with a partner? 10/30/2024 AUDIT-C Answer Date Recorded Q1: How often do you have a drink containing alcohol? Never 10/30/2024 Q2: How many drinks containi ng alcohol do you have on a typical day when you are drinking? Patient does not drink Q3: How often do you have si x or more drinks on one occasion? Never 10/30/2024 Overall Financial Resource Strain (CARDIA) Answe r Date Recorded How hard is it for you to pa y for the very basics like food, housing, medical care, and heating? Not very hard 10/30/2024 [facility]at [facility] - Occupational Stress Questionnaire Answer Date Recorded Do you feel stress - tense, restless, nervous, or anxious, or unable to sleep at night because your mind is troubled all the time - these days? Only a little 10/30/2024 Exercise Vital Sign Answer Date Recorde d On average, how many days pe r week do you engage in moderate to strenuous exercise (like a brisk walk)? 7 days 10/30/2024 On average, how many minutes do you engage in exercise at this level? 60 min 10/30/2024 Hunger Vital Sign Answer Date Recorded Within the past 12 months, y ou worried that your food would run out before you got the money to buy more. Never true 10/31/19 25 Within the past 12 months, t he food you bought just didn't last and you didn't have money to get more. Never true 10/30/2024 PRAPARE - Transportation Answer Date Re corded In the past 12 months, has l ack of transportation kept you from medical appointments or from getting medications? No 10/04 In the past 12 months, has l ack of transportation kept you from meetings, work, or from getting things needed for daily living? No 10/30/2024 Housing Stability Vital Sign Answer Esequiel e Recorded In the last 12 months, was t here a time when you were not able to pay the mortgage or rent on time? No 10/30/2024 In the past 12 months, how m any times have you moved where you were living? 0 10/30/2024 At any time in the past 12 m [facility], were you homeless or living in a group home (including now)? No 10/30/2024 Comments No Sex and Gender Information Value Date Recorded Sex Assigned at Female 10/30/2024 2:44 AM CDT Legal Sex Female 5:58 PM [employer] Gender Identity Not on file Sexual Orientation Not on file Last Filed Vital Signs Vital Sign Reading Time Taken Comments Blood Pressure 153/76 10/30/2024 11:55 AM CDT Nurse notified Pulse 55 10/30/2024 11:55 AM CDT Temperature 36.8 C (98.2 F) 10/30/2024 11:55 AM CDT Respiratory Rate 17 10/30/2024 11:5 5 AM CDT Oxygen Saturation 97% 10/30/2024 11: 55 AM CDT Inhaled Oxygen Concentration - - Weight 92.6 kg (204 lb 2.3 oz) 10/29/2024 6:34 PM CDT Height 170.2 cm (5' 7) 10/29/2024 6:34 PM CDT Body Mass Index 31.97 10/29/2024 6:34 PM CDT Plan of Treatment Health Maintenance Due Date Last Done Comments Colorectal Cancer Screening Colonoscopy (10 Years) 1955 Hepatitis C 1975 Mammogram Screening 1997 Annual Medicare Wellness Visit 2022 Dexa Scan (General) 2022 Zoster Vaccines (3 of 3) 09/09/2022 023, 05/08/2017 COVID-19 Vaccine (3 - 2023-2 5 season) 2024 09/29/2020, 09/01/2020 DTaP, Tdap and Td Vaccines ( 2 - Td or Tdap) 05/13/2027 05/13/2017 RSV Immunization or 60+ Years (1 - 1-dose 75+ series) 2032 Pneumococcal Vaccine: 50+ Years Completed 01/31/2023, 05/13/2017 Meningococcal B Vaccine Aged Out No l onger eligible based on patient's age to complete this topic Meningococcal Vaccine Aged Out No cynthia shama eligible based on patient's age to complete this topic RSV Immunizations Under 20 Months Aged Out No longer eligible b ased on patient's age to complete this topic Goals Goal Patient Goal Type Associated Problems Recent Progress Patient-Stated? Author Safety - identifies appropriate community resources to contact in emergency Lifestyle No Earle Lancaster RN Family - family caregiver with be involved in care transitions and discharge planning Lifestyle No Earle Lancaster, RN Patient will return to prior living situation and remain independent in ADLs upon discharge from hospital Lifestyle No Earle Lancaster RN Procedures Procedure Name Priority Date/Time Associated Diagnosis Comments IMMUNOFIXATION Routine 10/30/2024 10:35 AM CDT PROTEIN, ELECTROPHORESIS Routine 10/30/2024 10:35 AM CDT VITAMIN D, 25 OH Routine 10/30/2024 10:35 AM CDT VITAMIN D 1,25 DIHYDROXY Routine 10/30/2024 6:34 AM CDT CALCIUM, IONIZED STAT 10/30/2024 6:34 AM CDT MAGNESIUM STAT 10/30/2024 6:34 AM CDT COMPREHENSIVE METABOLIC PANEL STAT 10/30/2024 6:34 AM CDT CBC W/DIFF AUTOMATED STAT 10/30/2024 6:34 AM CDT PTH RELATED PROTEIN (QST) STAT 10/30/2024 6:34 AM CDT PTH - INTACT STAT 10/30/2024 6:34 AM CDT PHOSPHORUS, INORGANIC PHOSPHATE STAT 10/30/2024 6:34 AM CDT CALCIUM URINE RANDOM Nurse Collected Priority 10/30/2024 12:19 AM CDT HC URINALYSIS AUTO W/MICRO Nurse Collected Priority 10/30/2024 12:19 AM CDT XR CHEST PA+LAT STAT 10/29/2024 11:23 PM CDT CALCIUM, IONIZED STAT 10/29/2024 9:53 PM CDT MAGNESIUM STAT 10/29/2024 9:27 PM CDT LACTIC ACID W REFLEX (SEPSIS) STAT 10/29/2024 9:27 PM CDT LIPASE STAT 10/29/2024 9:27 PM CDT COMPREHENSIVE METABOLIC PANEL STAT 10/29/2024 9:27 PM CDT CBC W/DIFF AUTOMATED STAT 10/29/2024 9:27 PM CDT ECG 12-LEAD STAT 10/29/2024 9:19 PM CDT from Last 3 Months Results * IMMUNOFIXATION, SERUM (10/30/2024 10:35 AM CDT) Pathologist [facility] IMMUNOFIXATION SERUM SEE PATHOLOGIST'S INTERPRETATION 10/31/2024 11:17 AM CDT [facility] IMMUNOFIX (SERUM) INTERPRETATION THIS SERUM IMMUNOTYPING WAS INTERPRETED BY 11/01/2024 9:44 AM CDT [facility] Comment: DR ROBBIE AMAYA MD MONOCLONAL PROTEIN NOT IDENTIFIED 10/30/2024 10:3 5 AM CDT Quintin Gandara MD LABORATORY Final Result [facility] [address] [place] [phone], [id number] * PROTEIN, ELECTROPHORESIS (10/30/2024 10:35 AM CDT) Pathologist [facility] TOTAL PROTEIN (ELECTROPHORESIS SERUM) 6.5 6.0 - 8.3 G/DL 10/31/2024 11:16 AM CDT [facility] ALBUMIN ELECTROPHORESIS S/P/B 3.8 3.4 - 4.9 G/DL 10/31/2024 11:15 AM CDT [facility] [id number] S/P/B 0.3 0.2 - 0.4 G/DL 10/31/2024 11:15 AM CDT [facility] [id number] S/P/B 0.9 0.4 - 1.0 G/DL 10/31/2024 11:15 AM CDT [facility] BETA GLOBULIN S/P/B 0.7 0.5 - 1.2 G/DL 10/31/2024 11:15 AM CDT [facility] GAMMA GLOBULIN S/P/B 0.9 0.6 - 1.6 G/DL 10/31/2024 11:15 AM CDT [facility] ELECTROPHORESIS INTERPRETATION THIS SERUM PEP WAS INTERPRETED BY 11/01/2024 9:44 AM CDT [facility] Comment: DR ROBBIE AMAYA MD THE TOTAL SERUM PROTEIN IS NORMAL. ELECTROPHORESIS IDENTIFIES NO QUANTITATIVE ABNORMALITIES WITHIN THE PROTEIN FRACTIONS. MONOCLONAL PROTEINS ARE NOT DETECTED. 10/30/2024 10:3 5 AM CDT Quintin Gandara MD LABORATORY Final Result Performing Organization Address [facility] [[email or web address]] de Phone Number [facility] [address] [place] [address], [id number] * VITAMIN D, 25 OH (10/30/2024 10:35 AM CDT) VITAMIN D 25 HYDROXY S/P/B 32.1 20.0 - 50.0 NG/ML 10/30/2024 12:10 PM CDT [facility] Comment: <10 ng/mL (Severe deficiency) 10 TO 19 ng/mL (Mild to Moderate deficiency) 20 TO 50 ng/mL (Optimum levels) 51 TO 80 ng/mL (Increased risk of hypercalciuria) >80 ng/mL (Toxicity possible) 10/30/2024 10:3 5 AM CDT Quintin Gandara MD LABORATORY Final Result Performing Organization Address [facility] [[email or web address]] de Phone Number [facility] [address] [place] [address], [place] [phone] * PTH RELATED PROTEIN (QST) (10/30/2024 6:34 AM CDT) PTH-RP 15 11 - 20 pg/mL 11/06/2024 11:18 PM CDT [facility] [employer] RENALDO HERRERA Comment: This is a C-terminal PTH-RP assay. PTH-RP is useful in the differential diagnosis of hypercalcemia and levels may be elevated in patients with tumor-associated hypercalcemia. Elevated results may also be observed in patients with renal disease. This test was developed and its analytical performance characteristics have been determined by [facility]. It has not been cleared or approved by the FDA. This assay has been validated pursuant to the CLIA regulations and is used for clinical purposes. Test performed by [facility] [id number] [place] [address] Resistance Welder: Lili Shelton MD,PHD,CHERRY Test Reported by [facility], [facility], [address] [place], [place] Eldon Jimenez M.D., Ph.D., Director of Laboratories , CLIA [id number] 10/30/2024 6:34 AM CDT Eleni Gooden MD LABORATORY Final Res ult Performing Organization Address [facility]/ZIP Co de Phone Number [employer] [facility] [place] [id number] [place], [place] , [place] [phone] * (ABNORMAL) PTH - INTACT (10/30/2024 6:34 AM CDT) [facility] PTH INTACT 10.0(L) 18.4 - 80.1 PG/ML 10/30/2024 7:18 AM CDT [facility] Comment: ASSAY PERFORMED BY CHEMILUMINESCENCE METHODOLOGY USING [employer] CENT[employer] XPT REAGENT. PATIENT RESULTS DETERMINED BY ASSAYS USING DIFFERENT MANUFACTURERS FOR METHODS MAY NOT BE COMPARABLE. 10/30/2024 6:34 AM CDT Eleni Gooden MD LABORATORY Final Res ult Performing Organization Address City/[facility]/ZIP Co de Phone Number [facility] [address] [place] [address], [place] [phone] * (ABNORMAL) COMPREHENSIVE METABOLIC PANEL (10/30/2024 6:34 AM CDT) Only the most recent of2 resultswithin the time period is included. SODIUM S/P/B 140 136 - 145 MMOL/L 10/30/2024 7:19 AM T [facility] POTASSIUM S/P/B 3.9 3.5 - 5.1 MMOL/L 10/30/2024 7:19 AM T [facility] CHLORIDE S/P/B 110 97 - 115 MMOL/L 10/30/2024 7:19 AM T [facility] CO2 22.4 21.0 - 32.0 MMOL/L 10/30/2024 7:19 AM T [facility] GLUCOSE 122(H) 74 - 106 MG/DL 10/30/2024 7:19 AM T [facility] BUN 31(H) 7 - 18 MG/DL 10/30/2024 7:19 AM T [facility] CREATININE S/P/B 1.96(H) 0.55 - 1.02 MG/DL 10/30/2024 7:19 AM T [facility] CALCIUM S/P/B 11.0(H) 8.5 - 10.1 MG/DL 10/30/2024 7:19 AM T [facility] BILIRUBIN TOTAL S/P/B 0.3 0.2 - 1.0 MG/DL 10/30/2024 7:19 AM T [facility] ALKALINE PHOSPHATASE S/P/B 54(L) 55 - 142 U/L 10/30/2024 7:19 AM T [facility] AST 18 15 - 37 U/L 10/30/2024 7:19 AM T [facility] ALT 23 13 - 56 U/L 10/30/2024 7:19 AM T [facility] TOTAL PROTEIN S/P/B 6.5 6.4 - 8.2 G/DL 10/30/2024 7:19 AM T [facility] ALBUMIN S/P/B 3.4 3.4 - 5.0 G/DL 10/30/2024 7:19 AM CDT [facility] ANION GAP 7.6 2.0 - 10.0 MMOL/L 10/30/2024 7:19 AM CDT [facility] OSMOLALITY (CALC) 298 MOSM/KG 025 7:19 AM CDT [facility] Comment:REFERENCE RANGE NOT ESTABLISHED GFR ESTIMATE 28(L) >90 ML/MIN/1. 73 M2 10/30/2024 7:19 AM CDT [facility] GFR NOTES GFR REFERENCE S: 10/30/2024 7:19 AM CDT [facility] Comment: THE ESTIMATED GFR IS CALCULATED USING THE 2020 CKD-EPI EQUATION. THE FOLLOWING CATEGORIES FOR GRADING RENAL FUNCTION ARE RECOMMENDED BY THE INTERNATIONAL SOCIETY OF NEPHROLOGY (KDIGO 2012 CLINICAL PRACTICE GUIDELINE). G1,NORMAL OR HIGH: >89 ml/min/1.73 m2 G2,MILDLY DECREASED: 60-89 ml/min/1.73 m2 G3A,MILDLY TO MODERATELY DECREASED: 45-59 ml/min/1.73 m2 G3B,MODERATELY TO SEVERELY DECREASED: 30-44 ml/min/1.73 m2 G4,SEVERELY DECREASED: 15-29 ml/min/1.73 m2 G5,KIDNEY FAILURE: <15 ml/min/1.73 m2 10/30/2024 6:34 AM CDT Eleni Gooden MD LABORATORY Final Res ult [facility] [address] [place] [address], [id number] * (ABNORMAL) CBC W/DIFF AUTOMATED (10/30/2024 6:34 AM CDT) Only the most recent of2 resultswithin the time period is included. WBC 9.51 4.00 - 10.80 x10'3/uL 10/30/2024 6:56 AM CDT [facility] RBC 3.82(L) 4.10 - 5.40 x10'6/uL 10/30/2024 6:56 AM CDT [facility] HGB 11.5(L) 12.0 - 16.0 G/DL 10/30/2024 6:56 AM CDT [facility] HCT 33.8(L) 36.0 - 47.0 % 10/30/2024 6:56 AM CDT [facility] MCV 88.5 78.0 - 100.0 FL 10/30/2024 6:56 AM CDT [facility] MCH 30.1 27.0 - 31.0 PG 10/30/2024 6:56 AM CDT [facility] MCHC 34.0 33.0 - 36.0 G/DL 10/30/2024 6:56 AM CDT [facility] RDW 14.2 11.5 - 14.5 % 10/30/2024 6:56 AM CDT [facility] PLT 214 150 - 350 x10'3/uL 10/30/2024 6:56 AM CDT [facility] MPV 11.1(H) 7.4 - 10.4 FL 10/30/2024 6:56 AM CDT [facility] DIFFERENTIAL TYPE AUTOMATED DIFFERENTIAL 10/30/2024 6:56 AM CDT [facility] SEG NEUTROPHILS 87.0 % 6:56 AM CDT [facility] LYMPHOCYTES 8.4 % 10/30/2024 6:56 AM CDT [facility] MONOCYTES 3.0 % 10/30/2024 6:56 AM CDT [facility] EOSINOPHILS 0.8 % 10/30/2024 6:56 AM CDT [facility] BASOPHILS 0.5 % 10/30/2024 6:56 AM CDT [facility] IMMATURE GRANS % 0.3 % 10/31/19 6:56 AM CDT [facility] ABS. NEUTROPHILS 8.26 1.60 - 8.30 x10'3/uL 10/30/2024 6:56 AM CDT [facility] ABS. LYMPHOCYTES 0.80 0.80 - 4.70 x10'3/uL 10/30/2024 6:56 AM CDT [facility] ABS. MONOCYTES 0.29 0.00 - 1.50 x10'3/uL 10/30/2024 6:56 AM CDT [facility] ABS. EOSINOPHILS 0.08 0.00 - 0.40 x10'3/uL 10/30/2024 6:56 AM CDT [facility] ABS. BASOPHILS 0.05 0.00 - 0.20 x10'3/uL 10/30/2024 6:56 AM CDT [facility] ABS. IMMATURE GRANULOCYTES 0.03 0.00 - 0.03 x10'3/uL 10/30/2024 6:56 AM CDT [facility] ABS. NUCLEATED RBC'S 0.00 0.00 - 0.01 x10'3/uL 10/30/2024 6:56 AM CDT [facility] NRBC % 0.0 % 10/30/2024 6:56 AM CDT [facility] 10/30/2024 6:34 AM CDT Eleni Gooden MD LABORATORY Final Res ult [facility] [address] [place] [address], [id number] * (ABNORMAL) VITAMIN D 1,25 DIHYDROXY (10/30/2024 6:34 AM CDT) VITAMIN D 1 25 DIHYDROXY S/P/B <8(L) 18 - 72 pg/mL 11/04/2024 7:46 AM CDT [facility] RENALDO HERRERA VITAMIN D3 1 25 DIHYDROXY S/P/B <8 pg/mL 11/04/2024 7:46 AM CDT [employer] [facility] RENALDO LY VITAMIN D2 1 25 DIHYDROXY S/P/B <8 pg/mL 11/04/2024 7:46 AM CDT [facility] Comment: Vitamin D3, 1,25(OH)2 indicates both endogenous production and supplementation. Vitamin D2, 1,25(OH)2 is an indicator of exogenous sources, such as diet or supplementation. Interpretation and therapy are based on measurement of Vitamin D,1,25(OH)2, Total. This test was developed and its analytical performance characteristics have been determined by [employer] [place], [place]. It has not been cleared or approved by the FDA. This assay has been validated pursuant to the CLIA regulations and is used for clinical purposes. Test Performed by [facility], [facility], [address] [place] [address] Eldon Jimenez M.D., Ph.D., Director of Laboratories , CLIA [id number] 10/30/2024 6:34 AM CDT Eleni Gooden MD LABORATORY Final Res ult [facility] [place] [id number] [place], [place] , [place] [phone] * PHOSPHORUS, INORGANIC PHOSPHATE (10/30/2024 6:34 AM CDT) PHOSPHORUS 3.1 2.5 - 4.9 MG/DL 10/30/2024 7:19 AM CDT [facility] 10/30/2024 6:34 AM CDT Eleni Gooden MD LABORATORY Final Res ult [facility] [address] [place] [address], [place] [phone] * MAGNESIUM (10/30/2024 6:34 AM CDT) Only the most recent of2 resultswithin the time period is included. MAGNESIUM 2.0 1.6 - 2.6 MG/DL 10/30/2024 7:19 AM CDT [facility] 10/30/2024 6:34 AM CDT us Eleni Gooden MD LABORATORY Final Res ult Performing Organization Address City/[facility]/ZIP Co de Phone Number [facility] [address] [place] [address], [place] [phone] * CALCIUM, IONIZED (10/30/2024 6:34 AM CDT) Only the most recent of2 resultswithin the time period is included. CALCIUM IONIZED 1.32 1.15 - 1.33 MMOL/L 10/30/2024 6:51 AM CDT [facility] 10/30/2024 6:34 AM CDT us Eleni Gooden MD LABORATORY Final Res ult Performing Organization Address [facility] Co de Phone Number [facility] [address] [place] [address], [place] [phone] * CALCIUM URINE RANDOM (10/30/2024 12:19 AM CDT) CALCIUM (U) 12.3 MG/DL 10/30/2024 12:42 AM CDT [facility] Comment:REFERENCE RANGE NOT ESTABLISHED URINE SPECIMEN / Unknown 10/30/2024 12:19 AM CDT us Eleni Gooden MD URINE ORDERABLES Final Re sult Performing Organization Address City/[facility]/ZIP Co de Phone Number [facility] [address] [place] [address], [phone] * (ABNORMAL) URINALYSIS (10/30/2024 12:19 AM CDT) COLOR (U) COLORLESS 10/30/2024 12:32 AM CDT [facility] TRANSPARENCY CLEAR 10/30/2024 12:32 AM CDT [facility] SPECIFIC GRAVITY (U) 1.005 1.002 - 1.035 10/30/2024 12:32 AM CDT [facility] U PH 7.0 5 - 8 10/30/2024 12:32 AM CDT [facility] PROTEIN RANDOM (U) NEGATIVE NEGATIVE 10/30/2024 12:32 AM CDT [facility] GLUCOSE (U) NEGATIVE NEGATIVE MG/DL 10/30/2024 12:32 AM CDT [facility] KETONES MG/DL (U) NEGATIVE NEGATIVE 10/30/2024 12:32 AM CDT [facility] BILIRUBIN (U) NEGATIVE NEGATIVE 10/30/2024 12:32 AM CDT [facility] BLOOD (U) NEGATIVE NEGATIVE 10/30/2024 12:32 AM CDT [facility] NITRITES NEGATIVE NEGATIVE 10/30/2024 12:32 AM CDT [facility] UROBILINOGEN NORMAL 0 - 1 EU/DL 10/30/2024 12:32 AM CDT [facility] LEUKOCYTES (U) 2+(A) NEGATIVE 10/30/2024 12:32 AM CDT [facility] RBC/HPF 1 0 - 3 /HPF 10/30/2024 12:32 AM CDT [facility] WBC/HPF 12(H) 0 - 6 /HPF 10/30/2024 12:32 AM CDT [facility] BACTERIA (U) PRESENT /HPF 10/30/2024 12:32 AM CDT [facility] SQUAMOUS EPITHELIALS 2 10/30/2024 12:32 AM CDT [facility] URINE SPECIMEN OBTAINED BY CLEAN CATCH PROCEDURE / Unknown 10/30/2024 12:19 AM CDT us Sidra Palmer MD URINE ORDERABLES Final Resul t [facility] [address] [place] [address], [id number] * XR CHEST PA+LAT (10/29/2024 11:23 PM CDT) Anatomical Region Laterality Modality Chest Radiographic Consuelo ging 10/29/2024 11:2 4 PM CDT Impressions 10/29/2024 11:25 PM CDT IMPRESSION: ======== 1. No acute cardiopulmonary findings 2. Hyperinflation suggesting COPD changes Referred By: Interpreted By: Salvador Meyers MD, 10/29/2024 11:24 PM Narrative 10/29/2024 11:25 PM CDT [place] [id number] Examination: Chest x-ray 2 view Exam Date/Time: 10/29/2024 11:10 PM Reason For Exam: lab abnormalities Elevated calcium levels, intermittent headache for one week, indigestion Comparison: None Technique: PA and lateral views of the chest were obtained. Findings: Increased AP dimensional airspace and flattening of diaphragms. Heart size normal. Atherosclerotic aorta. Pulmonary vasculature within normal limits. No large effusion. No pneumothorax. No focal infiltrates or consolidative changes. ======== Procedure Note Salvador Meyers MD - 10/29/2024 [place] [id number] Examination: Chest x-ray 2 view Exam Date/Time: 10/29/2024 11:10 PM Reason For Exam: lab abnormalities Elevated calcium levels, intermittent headache for one week,indigestion Comparison: None Technique: PA and lateral views of the chest were obtained. Findings: Increased AP dimensional airspace and flattening of diaphragms.Heart size normal. Atherosclerotic aorta. Pulmonary vasculature withinnormal limits. No large effusion. No pneumothorax. No focal infiltratesor consolidative changes. ======== IMPRESSION: ======== 1. No acute cardiopulmonary findings 2. Hyperinflation suggesting COPD changes Referred By: Interpreted By: Salvador Meyers MD, 10/29/2024 11:24 PM Alyson Avila MD GENERAL IMAGING Final Result * LACTIC ACID W REFLEX (SEPSIS) (10/29/2024 9:27 PM CDT) LACTIC ACID VENOUS 1.0 0.4 - 2.0 MMOL/L 10/29/2024 10:14 PM CDT [facility] 10/29/2024 9:27 PM CDT Dago Joseph PA-C LABORATORY Final Result [facility] [address] [place] [address], [id number] * LIPASE (10/29/2024 9:27 PM CDT) LIPASE 45 13 - 75 UNITS/L 10/29/2024 10:45 PM CDT [facility] 10/29/2024 9:27 PM CDT Dago A Tosha PA-C LABORATORY Final Result Performing Organization Address [facility]/ZIP Co de Phone Number [facility] [address] [place] [address], [phone] * ECG 12 lead (10/29/2024 9:19 PM CDT) 10/29/2024 9:19 PM CDT Narrative [facility] - 10/31/2024 9:15 AM CDT [facility] Test Date: 2024-10-29 Pat [facility] Department: 70 Room: 1159 Gender: Female Feather St[employer]: : 1955 Requested By: DAGO JOSEPH Order Number: [id number] Reading MD: Davidson Schwartz Measurements Intervals [place] Rate: 53 P: 30 [place]: 174 QRS: 50 QRSD: 97 T: 42 QT: 406 QTc: 381 Interpretive Statements SINUS BRADYCARDIA WITH OCCASIONAL SUPRAVENTRICULAR PREMATURE COMPLEXES Procedure Note Davidson Schwartz MD - 10/31/2024 [facility] Test Date: 2024-10-29 Pat Name: RONNI QUIROS Department: 70 Room: 1159 Gender: Female Fe[employer]cher: : 1955 Requested By: DAGO JOSEPH Order Number: [id number] Reading ANABELL Schwartz Measurements Intervals [place] Rate: 53 P: 30 [place]: 174 QRS: 50 QRSD: 97 T: 42 QT: 406 QTc: 381 Interpretive Statements SINUS BRADYCARDIA WITH OCCASIONAL SUPRAVENTRICULAR PREMATURE COMPLEXES us Dago Joseph PA-C ECG ORDERABLES Final Result Performing Organization Address City/[facility] [facility]/ZIP Co de Phone Number [facility] RAD from Last 3 Months Insurance MEDICARE Advance Directives * Full Code (Latest Code Status on File) Date Activated Date Inactivated Comments 10/29/2024 11:09 PM 10/30/2024 4:43 PM Care Teams Clinical Education Consultant Relationship Specialty Start Date End Date Car Thomas MD [address] [place] [address] PCP - General INTERNAL MEDICINE 10/30/24
[2024-12-03 08:20] LABS: Alanine Aminotransferase 22 U/L (6-35); Albumin Level 3.8 g/dL (3.5-5.1); Alkaline Phosphatase 78 U/L (38-126); Anion Gap 3 mmol/L (4-12); Aspartate Amino Transferase 34 U/L (14-36); Bilirubin,Total 0.5 mg/dL (0.2-1.3); Blood Urea Nitrogen 32 mg/dL (7-17); Calcium 9.2 mg/dL (8.4-10.2); Carbon Dioxide 25 mmol/L (22-30); Chloride 107 mmol/L (98-107); Estimated Glomerular Filt Rate 26; Glucose 120 mg/dL (65-110); Osmolality Calculated 287 mOsm/kg (285-295); Potassium 4.1 mmol/L (3.4-5.0); Sodium 135 mmol/L (137-145); Total Protein 6.4 g/dL (6.3-8.2)
[2024-12-05 10:23] LABS: Ionized Calcium. 5.2 mg/dL (4.7-5.5)
== END 2024-12-03 07:42 | disposition home or self-care (01) ==
LOC: CHSLAB 07:44
PROVIDERS: PCP Internal Medicine; Visit Provider Internal Medicine
DX: N18.4 Chronic kidney disease, stage 4 (severe) (principal); E83.52 Hypercalcemia
CPT/HCPCS: 36415; 80053; 82330

== ENCOUNTER 2025-02-17 12:08 | Outpatient (CLI) | payer MEDICARE, SELFPAY ==
--- NOTE | ~2025-02-17 | US_ITS ---
EXAMINATION: US renal BI DATE: 02/17/2025 12:51 INDICATION: Chronic kidney disease, stage IV. TECHNIQUE: Multiple ultrasound grayscale images of the kidneys were obtained. COMPARISON: None. FINDINGS: The right kidney measures 8.3 x 4.7 x 4.1 cm. The left kidney measures 8.0 x 4.0 x 4.6 cm. The kidneys demonstrate normal parenchymal echogenicity. There is a 2.4 cm cyst in left kidney. There is no hydronephrosis. The bladder is normal. IMPRESSION: 1. Mild atrophy of the kidneys. No hydronephrosis. Reviewed, dictated and finalized at location E.
[2025-02-17 13:01] LABS: Albumin Level 4.9 g/dL (3.5-5.1); Anion Gap 12 mmol/L (4-12); Blood Urea Nitrogen 22 mg/dL (7-17); Calcium 10.6 mg/dL (8.4-10.2); Carbon Dioxide 24 mmol/L (22-30); Chloride 103 mmol/L (98-107); Estimated Glomerular Filt Rate 38; Glucose 108 mg/dL (65-110); Osmolality Calculated 292 mOsm/kg (285-295); Potassium 5.2 mmol/L (3.4-5.0); Sodium 139 mmol/L (137-145)
[2025-02-17 13:10] LABS: Total Protein Urine Random 17 mg/dL; Ur Ttl Prot Creatinine Ratio 1.00 mg/mg (0-0.20)
[2025-02-18 14:09] LABS: Albumin 3.9 g/dL (2.9-4.4); Alpha-1-Globulin 0.3 g/dL (0.0-0.4); Alpha-2-Globulin 0.9 g/dL (0.4-1.0); Gamma Globulin 1.1 g/dL (0.4-1.8)
[2025-02-19 13:08] LABS: ANA by IFA Rfx Titer/Pattern Negative (.)
[2025-02-19 14:08] LABS: Albumin, U 64.3 % (.); Alpha-1-Globulin, U 4.4 % (.); Alpha-2-Globulin, U 9.3 % (.); Beta Globulin, U 12.8 % (.); Gamma Globulin, U 9.2 % (.)
[2025-02-19 19:08] LABS: Anti-GBM Antibodies <0.2 units (0.0-0.9)
[2025-02-20 14:08] LABS: Anti-MPO Antibodies <0.2 units (0.0-0.9); Anti-PR3 Antibodies <0.2 units (0.0-0.9); Saccharomyces cerevisiae, IgA <20.0 Units (0.0-24.9); Saccharomyces cerevisiae, IgG <20.0 Units (0.0-24.9)
== END 2025-02-17 12:09 | disposition home or self-care (01) ==
LOC: CHSIMG 12:10
PROVIDERS: PCP Internal Medicine; Visit Provider Internal Medicine Nephrology
DX: I12.9 Hypertensive chronic kidney disease with stage 1 through stage 4 chronic kidney disease, or unspecified chronic kidney disease (principal); N18.4 Chronic kidney disease, stage 4 (severe)
CPT/HCPCS: 36415; 76770; 80069; 82570; 84155; 84156; 84165; 84166; 86037; 86038; 86160; 86364; 86671

== ENCOUNTER 2025-05-31 07:55 | Outpatient (CLI) | payer MEDICARE, SELFPAY ==
--- OUTSIDE RECORDS SUMMARY | 2025-05-31 07:57 | XMS_ITS | Clinical Summary ---
Author Organization [facility] Address [address] [place] [address] Care Team Providers Care Etiologist Name Role Phone Car Thomas MD Primary Care Provider [phone] Allergies No known active allergies Medications amLODIPine [...] Problem Noted Date Diagnosed Date Hypercalcemia 10/29/2024 Social History Tobacco Use Types Packs/Day Years Used Date Smoking Tobacco: Never Smokeless Tobacco: Never Tobacco Cessation:Counseling Given: Not Answered B1300 Health Literacy Answer Date Recor ded How often do you need to hav e someone help you when you read instructions, pamphlets, or other written material from your doctor or pharmacy? Sometimes 10/30/2024 [facility] Utilities Answer Date Recorded In the past 12 months has [facility] [employer], [employer], oil, or water [employer] threatened to shut off services in your [...] No 10/30/2024 Social Connection and Isolation Panel Answer Date Recorded In a typical week, how many times do you talk on the phone with family, friends, or neighbors? Twice a week 10/30/2024 How often do you get together with friends or re latives? Once a week 10/30/2024 How often do you attend roman catholic or hoahaoism serv ices? Never 10/30/2024 Do you belong to any clubs o r organizations such as roman catholic groups, unions, fraternal or athletic groups, or [...] care, and heating? Not very hard 10/30/2024 [facility] - Occupational Stress [...] any time in the past 12 [facility], were you homeless or living in a care home (including now)? 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[employer] Gender Identity Not on file Sexual Orientation [...] 2022 Zoster Vaccines (3 of 3) 09/09/2022 07/15/2022, 09/2016 COVID-19 Vaccine (3 - season) 2025 09/29/2020, 09/01/2020 Influenza Adult (#1) 2025 04/14/2022, 01/29/2021, 04/22/2020, Additional history exists DTaP, Tdap and Td Vaccines (2 - Td or Tdap) 05/13/2027 05/13/2017 RSV Immunization or 60+ Years (1 - 1-dose 75+ series) 2032 Pneumococcal Vaccine: 50+ Years Completed 01/31/2023, 05/13/2017 Hepatitis A Vaccines Aged Out No long er eligible based on patient's age to complete this topic Meningococcal B Vaccine Aged Out No l [...] to contact in emergency Lifestyle No Earle Lancaster, family law specialist - family caregiver with be involved in care transitions and discharge planning Lifestyle No Earle Lancaster, RN Patient will return to prior living situation and remain independent in ADLs upon discharge from hospital Lifestyle No Earle [place], [place] [id number] Advance Directives * Full Code (Latest Code Status on File) Date Activated Date Inactivated Comments 10/29/2024 11:09 PM 10/30/2024 4:43 PM Care Teams Etiologist Relationship Specialty Start Date End Date Car Thomas MD [address] [place] [address] PCP - General INTERNAL MEDICINE 10/30/24
--- OUTSIDE RECORDS SUMMARY | 2025-05-31 07:57 | XMS_ITS | Encounter Summary ---
Author Organization [facility] Address [facility] [place] [address] Care Team Providers Care Fisher Crab Name Role Phone None, Provider Primary Care Provider Car Alonso MD Primary Care Provider [phone] Encounter Details Date Type Department Care Team (Late st Contact Info) Description 11/10/2018 Abstract [facility] CONVERSION [address] [place] [address] , Generic Conversion, Social History Tobacco Use Types Packs/Day Years Used Date Smoking Tobacco: Never Assessed Comments Unknown Sex and Gender Information Value Date Recorded Sex Assigned at Female 10/30/2024 2:44 AM CDT 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
[2025-05-31 08:07] LABS: Hematocrit 40.6 % (35.0-42.0); Hemoglobin 13.0 g/dL (11.7-13.8); Mean Corpuscular HGB Conc 32.0 g/dL (32-36); Mean Corpuscular Hemoglobin 27.9 pg (27.0-31.0); Mean Corpuscular Volume 87.1 fL (78.0-102.0); Platelet Count Result 234 K/mm3 (150-420); Red Blood Count 4.66 M/mm3 (4.20-5.40); White Blood Count 6.7 K/mm3 (4.8-10.8)
[2025-05-31 08:13] LABS: Add Urine Microscopic? NO; Appearance Urine Clear (Clear); Glucose Urine UA Negative (Negative); Leukocyte Esterase Ur Negative LEU/UL (Negative); Nitrate Urine Negative (Negative); Specific Grav Ur 1.015 (1.010-1.020)
[2025-05-31 08:48] LABS: Alanine Aminotransferase 14 U/L (6-35); Albumin Level 4.3 g/dL (3.5-5.1); Alkaline Phosphatase 75 U/L (38-126); Anion Gap 8 mmol/L (4-12); Aspartate Amino Transferase 26 U/L (14-36); Bilirubin,Total 0.4 mg/dL (0.2-1.3); Blood Urea Nitrogen 30 mg/dL (7-17); Calcium 10.3 mg/dL (8.4-10.2); Carbon Dioxide 23 mmol/L (22-30); Chloride 110 mmol/L (98-107); Cholesterol 166 mg/dL (0-200); Creatine Kinase 128 U/L (30-135); Estimated Glomerular Filt Rate 33; Glucose 102 mg/dL (65-110); HDL Direct 67 mg/dL; Osmolality Calculated 298 mOsm/kg (285-295); Potassium 4.5 mmol/L (3.4-5.0); Sodium 141 mmol/L (137-145); Total Protein 6.7 g/dL (6.3-8.2); Triglycerides 94 mg/dL (<150)
[2025-05-31 08:56] LABS: Hemoglobin A1C 5.5 % (<5.7)
== END 2025-05-31 07:56 | disposition home or self-care (01) ==
LOC: CHSLAB 07:56
PROVIDERS: PCP Internal Medicine; Visit Provider Internal Medicine
DX: E55.9 Vitamin D deficiency, unspecified (principal); E78.2 Mixed hyperlipidemia; I10 Essential (primary) hypertension; N39.0 Urinary tract infection, site not specified; R73.01 Impaired fasting glucose
CPT/HCPCS: 36415; 80053; 80061; 81003; 82550; 83036; 85027